=== PATIENT | male | born 1980 | race African-American/Black ===

== ENCOUNTER 2016-07-09 16:11 | Emergency (ER) ==
[2016-07-09 16:21] VITALS: BP 139/74
--- NOTE | 2016-07-09 17:18 | PROVIDER DOCUMENTATION ---
HPI-Musculoskeletal Pain/Inj - GENERAL Source: patient - HX OF PRESENT ILLNESS-MUSKULOSKELTAL Quality of Pain: reports: aching Severity in ED: mild Onset/Duration: just prior to arrival Timing: still present Modifying Factors: improves with: nothing Any recent injury?: No Locality of Occurance: Home Similar Symptoms Previously?: No Recently seen or treated by another doctor?: No - FALL INJURY Location of Pain/Injury: reports: hand(s) (right fist) Pain Radiation: reports: no radiation Reason for Fall: reports: other (jumping on steps and landed forward) Symptoms prior to fall:: reports: none Loss of Consciousness: no loss of consciousness Injury Associated Symptoms: reports: denies symptoms - UPPER EXTREMITY PAIN/INJURY Extremities Pain Location: hand: right (3,4,5th knuckle ) Context / Method of Injury: reports: fell Associated Symptoms: reports: denies symptoms <Krysten Tobin - Last Filed: 07/09/16 17:13> <Mora Alberto - Last Filed: 07/09/16 17:38> - GENERAL Chief Complaint: Extremity Injury Stated Complaint: EXTREMITY INJURY Time Seen by Provider: 07/09/16 16:23 - HX OF PRESENT ILLNESS-MUSKULOSKELTAL Nature of Presenting Problem: pt is a 35 y/o M present to the ER with c/o swelling to the right hand after running up the stairs and trying to jump but landed on step and fell forward onto his right first, he complains of pain and swelling to the right first. pt denies numbness, tingling, or nay prior injury before fall. Pt in no apparent distress. (Krysten Tobin) Review of Systems - Adult - REVIEW OF SYSTEMS - ADULT Constitutional: denies: chills, fever, weight gain Eyes: reports: no symptoms reported Ears, Nose, Mouth & Throat: reports: no symptoms reported Cardiovascular: reports: no symptoms reported Respiratory: reports: no symptoms reported Gastrointestinal: reports: no symptoms reported Genitourinary: reports: no symptoms reported Musculoskeletal: reports: joint pain (right hand), joint swelling (right hand). denies: back pain, frequent leg cramps, muscle weakness Integumentary: denies: mole changes, nail changes, rash Neurological: denies: dizziness/vertigo, headache/migraines, loss of balance, numbness Psychiatric: reports: no symptoms reported Endocrine: reports: no symptoms reported Hematologic/Lymphatic: reports: no symptoms reported Allergic/Immunologic: reports: no symptoms reported All Other Systems: Reviewed and Negative <Krysten Tobin - Last Filed: 07/09/16 17:13> Past History - Adult - PAST MEDICAL HISTORY-ADULT Review of Records: reports: Nursing Assessment Review - IMMUNIZATION STATUS Childhood Immunizations: See Nurse Assessment Flu Vaccine: See Nurse Assessment - SOCIAL HISTORY Smoking: cigarettes, less than 1 pack/day Provider spent 3-5 mins advising pt. on dangers of tobacco.: Discussed manners to quit use, and f/u contacts for add'l counseling. Substance Use: none/never Alcohol Use Frequency: never <Krysten Tobin - Last Filed: 07/09/16 17:13> Physical Exam-Injury Related - Physical Exam-Injury Related Initial Vital Signs Reviewed: Yes General Appearance: appears well, alert, no apparent distress Eyes: PERRL/EOMI, pink conjunctivae Head, Ears, Nose, Mouth & Throat: moist mucous membranes, normal ENT inspection Neck: non-tender, full range of motion Respiratory: chest non-tender, lungs clear, normal breath sounds, no pleuratic chest pain, no respiratory distress Cardiovascular: normal peripheral pulses, regular rate, rhythm, no edema, no gallop, no JVD, no murmur Peripheral Pulses: radial (R): 2+ Extremity: swelling (right hand limited ROM but still good extention, good radial pulses) Integumentary: normal color, warm/dry, swelling (to 3rd, 4th, and 5th right hand metacarpals) Neurologic: grossly normal, no motor/sensory deficits Psych/Mental Status: normal mood/affect, normal thought content, normal thought process, oriented x 3 - Glascow Coma Score Best Eye Response ([place]): (4) open spontaneously Best Verbal Response ([place]): (5) oriented Best Motor Response ([place]): (6) obeys commands [place] Total: 15 <Krysten Tobin - Last Filed: 07/09/16 17:13> Progress <Krysten Tobin - Last Filed: 07/09/16 17:13> - XRAY 1 XRAY: Right XRAY Study: Hand XRAY Interpretation: 4th fx, shaft, displaced <Mora Alberto - Last Filed: 07/09/16 17:38> - PLAN OF CARE/RESULTS Progress/Plan/Lab Results: Orders Category Date Time Status Arm Sling DIRECTED Care 07/09/16 17:06 Active OCL Splint DIRECTED Care 07/09/16 17:06 Active HAND COMPLETE RIGHT [RAD] Stat Exams 07/09/16 16:21 Taken Vital Signs - 24 hr 07/09/16 16:18 Temperature 97.8 F Pulse Rate 80 Respiratory 18 Rate Blood Pressure 139/74 O2 Sat by Pulse 100 Oximetry (Krysten Tobin) Departure <Krysten Tobin - Last Filed: 07/09/16 17:13> - Departure Time of Disposition Order: 17:29 Certified Medical Emergency: Emergent <Mora Alberto - Last Filed: 07/09/16 17:38> - Departure DIAGNOSIS: Metacarpal bone fracture Qualifiers: Encounter type: initial encounter Metacarpal bone: fourth Fracture type: closed Metacarpal location: shaft Fracture alignment: displaced Laterality: right Qualified Code(s): S62.324A - Displaced fracture of shaft of fourth metacarpal bone, right hand, initial encounter for closed fracture Disposition: HOME 01 Condition: Stable Additional Instructions: Follow up with specialist for further management. Take medications as directed. ED Follow Up Instructions: You have been treated by a care provider in the Emergency Department. These instructions are being provided to you so you can have an understanding of how to care for yourself upon discharge. Upon discharge from the Emergency Department, you are responsible for making arrangements for follow-up care by a physician of your choice. Take all prescribed medications as directed. Return to the Emergency Department immediately for any new or worsening symptoms. You may call the Physician Referral phone number at [phone] to obtain a list of Physicians who are taking new patients. Prescriptions: Hydrocodone/APAP 7.5 mg/325 mg [[place]-7.5] 1 each PO Q6H PRN PRN #20 tablet PRN Reason: Pain Ondansetron [Zofran] 4 mg PO Q6H PRN PRN #20 tablet PRN Reason: Nausea Referrals: None,PCP [Primary Care Provider] - Beronica Smith DO [STAFF PHYSICIAN] - Lianet Perry MD [STAFF PHYSICIAN] - Attestation - Scribe Verification/Attestation Scribe:: Krysten Tobin Acting as Scribe for:: Mora Alberto Scribe documention review:: This chart was documented by a scribe and accurately reflects the service the provider performed and the decisions made by the provider. <Krysten Tobin - Last Filed: 07/09/16 17:13> Physician Attestation
--- NOTE | 2016-07-09 18:00 | Diag Imaging Result Document ---
PROCEDURE NAME: HAND COMPLETE RIGHT - 07/09/2016 RIGHT HAND 3 VIEWS: There is an oblique fracture through the shaft of the 4th metacarpal. There is some dorsal displacement of the distal fragment. There is mild overriding of fragments. There is no other fracture or dislocation identified. IMPRESSION: Oblique fracture through the shaft of the 4th metacarpal.
== END 2016-07-09 17:47 | disposition home or self-care (01) ==
LOC: P.ED 16:11
DX: S62.324A Displaced fracture of shaft of fourth metacarpal bone, right hand, initial encounter for closed fracture (principal); M79.641 Pain in right hand; M25.441 Effusion, right hand; F17.210 Nicotine dependence, cigarettes, uncomplicated; Z71.6 Tobacco abuse counseling; W10.9XXA Fall (on) (from) unspecified stairs and steps, initial encounter
CPT/HCPCS: 99283